=== PATIENT | female | born 1940 | race Caucasian/White ===

== ENCOUNTER 2017-08-10 12:58 | Outpatient (CLI) | payer MEDICARE, OTHER ==
--- NOTE | 2017-08-13 11:28 | CONSULTATION REPORT ---
REFERRING PHYSICIAN: Jen Hernandez MD CONSULTING PHYSICIAN: Tacos Davenport MD Dear Dr. Hernandez: REASON FOR CONSULT: Thank you for the consultation regarding Mily Kenny. HISTORY OF PRESENT ILLNESS: This is a 76-year-old white woman who was told in the 1960s that she had rheumatoid arthritis. This was based on some joint discomfort and a positive rheumatoid factor. She was never treated. She comes in in no significant pain. She has been taking diclofenac for at least 50 years. She has be careful of her diet and those 2 modalities seem to help her. As an example, if she eats a tomato, she gets significantly worse. She has noted progressive slow deformities in her fingers and her fingers are like her fathers. She is 76 and around 73, she noticed her feet collapsed, i.e. she lost the arches in her feet and she has had some progressive toe deformities and overlapping toes, worse on the left than the right. 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 At present, she is more or less normalizing her life. PAST MEDICAL HISTORY: 1. Appendectomy. 2. One episode of pneumonia. 3. She recently started lisinopril for hypertension. 4. Patient reached menopause in 1995. MEDICATIONS: 1. Diclofenac 50 mg once a day. 2. Lisinopril 5 mg daily. 3. She takes aspirin. 4. Vitamin E super complex. 5. Calcium. 6. Vitamin D supplement. ALLERGIES: 1. Sulfa drugs. 2. Neomycin. SOCIAL HISTORY: No smoking. No drinking. She is and lives in [place]. FAMILY HISTORY: Father and mother had arthritis, possibly rheumatoid. REVIEW OF SYSTEMS: Her weight has been stable. She has had no fatigue, weakness, or fevers. No dry, red, painful eyes. No loss of vision. No dry mouth or difficulty swallowing. No loss of taste. No ringing in the ears. No loss of hearing. She has had no chest pain or palpitations. No history of heart murmurs. No shortness of breath. No swelling of her legs. No coughing or wheezing. No nausea, vomiting, or diarrhea. No dark stools or bloody stools. No urinary difficulties. No skin rashes, hives, photosensitivity, color changes of the hands or feet in the cold. No problems with headaches, dizziness, fainting, or muscle spasms. No problems with excessive worries, anxiety, or depression. No swollen or tender lymph nodes. PHYSICAL EXAMINATION: GENERAL: On exam, she looks well. VITAL SIGNS: Height: 5 feet 2 inches. Weight: 159 pounds. T: 98.3, R: 18 , heart rate 78, BP: 140/60. HEENT: Sclerae are anicteric. Conjunctivae are pink. No stomatitis. No thyroid enlargement. NECK: No cervical nodes. Good range of motion in extension, flexion, right lateral rotation, and left lateral rotation. She has a little thoracic scoliosis. She has kyphosis, otherwise, no spinal or paraspinal tenderness. LUNGS: Clear with no crackles or wheezing. HEART: Regular rhythm. No extra heart sounds. ABDOMEN: Soft and nontender. VASCULAR: No edema or cyanosis. JOINTS: Hard bony swelling at the DIPs and PIPs with deformity. The MCPs are spared. No synovitis. No ulnar deviation. Wrists, elbows, and shoulders are unremarkable. AC/SC and TMJ joints are unremarkable. She has good range of motion at the hips and the knees. The ankles are nontender. She has pes planus deformities of both feet but no tenderness. She has bunions. She has hammer toes. She has an overlapping 2nd digit onto her great toe on the left. IMAGING STUDIES: Her last bone density was in 2009 and she tells me it was equivocal. Last chest x-ray was 2012. Last mammogram was in 2012. IMPRESSION: 1. Osteoarthritis of the hands. 2. Polyarthritis. I am concerned about her feet, which may represent rheumatoid deformities. 3. Postmenopausal. 4. Kyphosis. I am concerned for age-related osteoporosis. PLAN: 1. We will proceed by obtaining x-rays of her hands and feet. I will look at those and give the patient a call. 2. We will obtain a bone density study, and again, I will review those results with her by phone. Thank you very much. cc: Dr. Jen Vallecillo, HEAD OF IT [facility]
== END 2017-08-10 14:13 ==
LOC: RHEU 12:58
PROVIDERS: ATTEND Internal Medicine
DX: M19.042 Primary osteoarthritis, left hand (principal); M19.041 Primary osteoarthritis, right hand; M13.0 Polyarthritis, unspecified; Z78.0 Asymptomatic menopausal state; M40.209 Unspecified kyphosis, site unspecified
CPT/HCPCS: 99213; G0463

== ENCOUNTER 2017-08-13 11:50 | Outpatient (CLI) | payer MEDICARE, OTHER ==
--- NOTE | 2017-08-13 16:13 | Diagnostic Imaging Report ---
[facility] [address] [facility].[address] [address] Report Submission Date: Aug 13, 2017 4:03:44 PM HANGING FLAGS DECORATOR Patient Study Name: JOSE MANUEL WALTON Date: Aug 13, 2017 12:03:59 PM HANGING FLAGS DECORATOR Modality Type: CR Gender: F Description: UPPER EXTREMITY : 36 Institution: [facility] Physician: JOSELINE VELOZ Examination: Plain film hands History: Hand discomfort Comparison exams: None available Findings: 3 views the right and left hands demonstrates osteopenia. Extensive articular degenerative changes. 1st carpometacarpal degenerative changes. No evidence for displaced fracture. No gross soft tissue abnormality. Impression: Extensive articular degenerative changes. No displaced fracture. Electronically signed on Aug 13, 2017 4:03:44 PM HANGING FLAGS DECORATOR by: Jaleel BURCIAGA
--- NOTE | 2017-08-13 16:14 | Diagnostic Imaging Report ---
[facility] [address] [facility].[address] [address] Report Submission Date: Aug 13, 2017 3:56:58 PM BAT PERSON Patient Study Name: JOSE MANUEL WALTON Date: Aug 13, 2017 12:09:01 PM BAT PERSON Modality Type: CR Gender: F Description: LOWER EXTREMITY : 38 Institution: [facility] Physician: JOSELINE VELOZ Examination: Plain film feet History: bilateral foot discomfort. Findings: 3 views of the right and left foot demonstrates osteopenia. Articular degenerative changes involving the phalanges. Lisfranc joint degenerative changes. No fracture line or dislocation. Angulation of the digits laterally. Mild soft tissue prominence. Impression: Osteopenia. Advanced articular degenerative changes. No displaced fracture line. Electronically signed on Aug 13, 2017 3:56:58 PM BAT PERSON by: Jaleel BURCIAGA
== END 2017-08-13 11:52 ==
LOC: RAD 11:50
PROVIDERS: ATTEND Internal Medicine
DX: M18.0 Bilateral primary osteoarthritis of first carpometacarpal joints (principal); M81.0 Age-related osteoporosis without current pathological fracture
CPT/HCPCS: 77080

== ENCOUNTER 2018-11-01 12:23 | Emergency (ER) | payer MEDICARE, OTHER ==
--- NOTE | 2018-11-01 12:42 | ED Physician Documentation ---
Fall - HISTORIAN Historian: patient - HPI Stated Complaint: wrist pain Chief Complaint: Fall Additional Information: Patient presents to ED after slipping and falling on the ice while getting the mail today. Patient complains of left wrist pain and swelling. She denies nausea/vomiting. Onset: just prior to arrival Where: home Context: slipped (on ice) r: mild Associated Symptoms:: no loss of consciousness Injury to Left Extremity: wrist Further Comments: no - ROS CONST: denies: fever NEURO: denies: dizziness MS/SKIN/LYMPH: denies: weakness, numbness EYES/ENT: none CVS/RESP: denies: chest pain, shortness of breath GI/: denies: nausea, vomiting - PAST HX Past History: none Allergies/Adverse Reactions: Allergies Allergy/AdvReac Type Severity Reaction Status Date / Time Sulfa (Sulfonamide Allergy Verified 11/01/18 13:06 Antibiotics) Home Medications: Ambulatory Orders Medication Instructions Recorded Diclofenac Sodium [Voltaren-Xr] 100 mg PO DAILY u2 10/15/13 HYDROcodone /APAP 5/325 [[place] 1 each PO Q4 PRN #20 tablet 11/01/18 5/325] Losartan Potassium [Cozaar] 100 mg PO D 11/01/18 - SOCIAL HX Smoking History: non-smoker Alcohol Use: none Drug Use: none - FAMILY HX Family History: none - REVIEWED ASSESSMENTS Nursing Assessment Reviewed: Yes Vitals Reviewed: Yes ED Results Lab/Radiology - Radiology Radiology Impressions: Patient Study Name: JOSE MANUEL WALTON Date: Nov 01, 2018 12:57:41 PM 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 Posterior angulation. Ulna appears to be intact. Advanced degenerative changes involving the 1st carpal metacarpal articulation. No obvious carpal bone cortical disruption. Impression: Distal radial intra-articular fracture with angulation. Electronically signed on Nov 01, 2018 1:23:34 PM BELT MAKER HELPER by: Jaleel Saldaña - Orders Orders: ED Orders Category Date Time Status WRIST 3 VIEWS OR MORE [RAD] Stat Exams 11/01/18 Ordered Fall Physical Exam - Physical Exam General Appearance: no acute distress, alert Head: non-tender, no swelling Neck: non-tender, painless ROM Eye: NICOLE ENT: nml external inspection Resp/CVS: chest non-tender, breath sounds nml Abdomen: soft, normal bowel sounds Neuro: oriented x3 Skin: color nml, no rash Back: normal inspection, no vertebral tenderness Extremities: no pedal edema, other (left wrist deformity with ecchymosis and swelling. ) Joint: nml ROM Discharge Clincal Impression: Distal radius fracture, left Qualifiers: Encounter type: initial encounter Fracture type: closed Fracture morphology: other intra-articular Qualified Code(s): S52.572A - Other intraarticular fracture of lower end of left radius, initial encounter for closed fracture Prescriptions: HYDROcodone /APAP 5/325 [[place] 5/325] 1 each PO Q4 PRN #20 tablet PRN Reason: Pain Referrals: Jen Hernandez MD [Primary Care Provider] - 2 Days Additional Instructions: 1. [place] as needed for pain. May add ibuprofen if needed 2. Follow up with: [facility] [address] [place] [id number] Main: Call and make an appointment as soon as possible 3. Follow up with PCP within 1 week 4. Return to ER for new or worsening symptoms. Condition: Stable Disposition: 01 HOME, SELF-CARE Decision to Admit: NO Date of Decison to Admit: 11/01/18 Decision Time: 13:43
[2018-11-01 15:06] VITALS: BP 155/72
--- NOTE | 2018-11-01 15:12 | Diagnostic Imaging Report ---
<p>Your browser does not support iframes.</p> DOE CABRAL [facility] [address] [facility] [address] [address] Report Submission Date: Nov 01, 2018 1:23:34 PM HOPS FARMWORKER Patient Study Name: JOSE MANUEL WALTON Date: Nov 01, 2018 12:57:41 PM HOPS FARMWORKER Modality Type: DX Gender: F Description: WRIST 3 VIEWS OR MORE : 38 Institution: [facility] Physician: DOE CABRAL Examination: Plain film left wrist History: LEFT WRIST, PAIN/ DEFORMITY IN LEFT WRIST AFTER FALL TODAY Comparison exams: None available Findings: 3 views of the left wrist demonstrates distal radial fracture with extension to the articular surface. Posterior angulation. Ulna appears to be intact. Advanced degenerative changes involving the 1st carpal metacarpal articulation. No obvious carpal bone cortical disruption. Impression: Distal radial intra-articular fracture with angulation. Electronically signed on Nov 01, 2018 1:23:34 PM HOPS FARMWORKER by: Jaleel BURCIAGA
== END 2018-11-01 15:04 | disposition home or self-care (01) ==
LOC: ED 12:23
DX: S52.572A Other intraarticular fracture of lower end of left radius, initial encounter for closed fracture (principal); W00.9XXA Unspecified fall due to ice and snow, initial encounter; Y93.89 Activity, other specified; Y92.009 Unspecified place in unspecified non-institutional (private) residence as the place of occurrence of the external cause
CPT/HCPCS: 29125; 73110; 99283